=== PATIENT | male | born 1995 | race Caucasian/White ===

== ENCOUNTER 2017-04-08 19:25 | Emergency (ER) | payer OTHER ==
[~2017-04-08] VITALS: Ht 193 cm; Wt 106.6 kg
[~2017-04-08 19:25] MED LIST: AUGMENTIN 875 M1 TAB PO; CLARITIN10 MG PO; IBU-8800 MG PO; NKHM; PRELONE5 MG/5 ML PO
[2017-04-08 19:30] VITALS: BP 136/61
[2017-04-08] MEDS ORDERED: PREDNISONE10 MG PO (19:38)
== END 2017-04-08 19:43 | disposition home or self-care (01) ==
LOC: ED 19:25
DX: L23.7 Allergic contact dermatitis due to plants, except food (principal)

== ENCOUNTER 2018-03-01 22:20 | Emergency (ER) | payer OTHER ==
[~2018-03-01] VITALS: Ht 190.5 cm; Wt 104.3 kg
[~2018-03-01 22:20] MED LIST changes: +PREDNISONE10 MG PO
[2018-03-01 22:23] VITALS: BP 132/71
[2018-03-01 22:55] LABS: BASO % 0.2 % (0.0-1.0); EOS # 0.1 10*3/uL (0.0-0.4); EOS % 0.8 % (1.0-4.0); HEMATOCRIT 45.7 % (42.0-52.0); HEMOGLOBIN 15.4 g/dl (14.0-18.0); LYMPH # 0.7 10*3/uL (1.3-4.4); LYMPH % 4.7 % (27.0-41.0); MEAN CELL VOLUME 92.3 fl (80.0-94.0); MEAN CORPUSCULAR HGB 31.1 pg (27.0-31.0); MEAN CORPUSCULAR HGB CONC 33.7 g/dl (33.0-37.0); MEAN PLATELET VOLUME 11.4 fl (9.6-12.3); MONO % 6.1 % (3.0-9.0); NEUT # 13.6 10*3/uL (2.3-7.9); NEUT % 87.9 % (47.0-73.0); PLATELET COUNT AUTOMATED 207 10*3/uL (130-400); RED BLOOD COUNT 4.95 10*6/uL (4.50-5.90); RED CELL DISTRI WIDTH 12.3 % (0-14.5); WHITE BLOOD COUNT 15.5 10*3/uL (4.8-10.8)
[2018-03-01 23:10] LABS: ALBUMIN 4.5 gm/dl (3.1-4.5); ALKALINE PHOSPHATASE 91 U/L (45-117); BUN 13 mg/dl (7-24); CHLORIDE 108 mmol/L (98-107); CREATININE 1.16 mg/dL (0.70-1.30); LIPASE 84 U/L (73-393); POTASSIUM 4.3 mmol/L (3.5-5.1); SGOT/AST 14 IU/L (3-35); SGPT/ALT 29 U/L (12-78); SODIUM 141 mmol/L (136-145); TOTAL PROTEIN 7.4 gm/dL (6.4-8.2)
== END 2018-03-01 23:20 | disposition home or self-care (01) ==
LOC: ED 22:20
PROVIDERS: Student in an Organized Health Care Education/Training Program
DX: R11.2 Nausea with vomiting, unspecified (principal); R19.7 Diarrhea, unspecified; R10.9 Unspecified abdominal pain

== ENCOUNTER 2019-05-16 15:41 | Emergency (ER) | payer OTHER ==
[~2019-05-16] VITALS: Ht 190.5 cm; Wt 97.5 kg
[2019-05-16 15:43] VITALS: BP 138/48
[2019-05-16 15:56] LABS: BILIRUBIN NEGATIVE (NEGATIVE); BLOOD NEGATIVE (NEGATIVE); CLARITY CLOUDY (CLEAR); COLOR YELLOW (YELLOW); GLUCOSE NEGATIVE (NEGATIVE); KETONE NEGATIVE (NEGATIVE); LEUKO ESTERASE NEGATIVE (NEGATIVE); NITRITE NEGATIVE (NEGATIVE); PH 7.5 (5.0-9.0); SPECIFIC GRAVITY 1.015 (1.005-1.030); UROBILINOGEN 0.2 E.U./dl (0.2-1.0)
[2019-05-16 16:13] LABS: BACTERIA TRACE
[2019-05-16] MEDS ORDERED: FLAGYL500 MG PO (16:17)
[2019-05-19 03:04] LABS: GONOCOCCUS BY NAA Negative (Negative)
== END 2019-05-16 16:24 | disposition home or self-care (01) ==
LOC: ED 15:41
PROVIDERS: Nurse Practitioner Family
DX: Z20.2 Contact with and (suspected) exposure to infections with a predominantly sexual mode of transmission (principal)